=== PATIENT | female | born 1990 | race Caucasian/White ===

== ENCOUNTER 2019-04-10 22:50 | Emergency (ER) | payer SELFPAY ==
[~2019-04-10] VITALS: Ht 165.1 cm; Wt 68.0 kg
[2019-04-10] MEDS ORDERED: KETOROLAC 30MG/ML VIAL IM ONE (23:45)
[2019-04-10 23:53] VITALS: BP 101/63
== END 2019-04-11 00:27 | disposition home or self-care (01) ==
LOC: ER 22:50
DX: S10.93XA Contusion of unspecified part of neck, initial encounter (principal); S30.0XXA Contusion of lower back and pelvis, initial encounter; F12.10 Cannabis abuse, uncomplicated; V49.88XA Car occupant (driver) (passenger) injured in other specified transport accidents, initial encounter; Y93.89 Activity, other specified; Y92.89 Other specified places as the place of occurrence of the external cause; Y99.8 Other external cause status
CPT/HCPCS: 81025; 96372; 99283; J1885

== ENCOUNTER 2021-08-15 13:17 | Emergency (ER) | payer MEDICAID ==
[~2021-08-15] VITALS: Ht 167.6 cm; Wt 63.0 kg
[~2021-08-15 13:17] MED LIST: NAPR-681 PO
[2021-08-15 13:21] VITALS: BP 122/76
[2021-08-15] MEDS ORDERED: ACETAMINOPHEN 325MG TABLET PO ONE (14:30)
[2021-08-15] MEDS ORDERED: VISCOUS LIDOCAINE 2% 15 ML UDC MM STA (15:47)
[2021-08-15] MEDS ORDERED: T3 PO (16:55)
[2021-08-15] MEDS ORDERED: ONDA4TAB11 PO (16:55)
== END 2021-08-15 17:37 | disposition home or self-care (01) ==
LOC: ER 13:24
DX: O26.891 Other specified pregnancy related conditions, first trimester (principal); S02.609A Fracture of mandible, unspecified, initial encounter for closed fracture; Y04.0XXA Assault by unarmed brawl or fight, initial encounter; Y93.89 Activity, other specified; Y92.89 Other specified places as the place of occurrence of the external cause; Y99.8 Other external cause status; Z3A.01 Less than 8 weeks gestation of pregnancy
CPT/HCPCS: 70486; 99284

== ENCOUNTER 2022-08-30 21:44 | Emergency (ER) | payer MEDICAID, OTHER ==
[~2022-08-30] VITALS: Ht 165.1 cm; Wt 82.0 kg
[~2022-08-30 21:44] MED LIST changes: +ONDA4TAB11 PO; +T3 PO
[2022-08-30 22:04] VITALS: BP 140/83
== END 2022-08-31 01:00 | disposition left against medical advice (07) ==
LOC: ER 21:44
DX: Z53.21 Procedure and treatment not carried out due to patient leaving prior to being seen by health care provider (principal)
CPT/HCPCS: 81025; 99281